=== PATIENT | male | born 1930 | race Caucasian/White ===

== ENCOUNTER 2021-06-30 11:57 | Emergency (ER) | payer MEDICARE, OTHER ==
[2021-06-30] MEDS ORDERED: Iopamidol 612 MG/ML 100 ML Bottle IVPUSH ONE (12:06)
[2021-06-30 12:39] LABS: ANION GAP 11.1 mEq/L (7-13); CHLORIDE,CL 103 mmol/L (98-107); SODIUM,NA 139 mmol/L (136-145)
[2021-06-30 12:47] LABS: PTT,PARTIAL THROMBOPLSTIN TIME 24.1 SEC (22.0-34.0)
[2021-06-30 13:22] LABS: AMPHETAMINES,URINE NEGATIVE (NEGATIVE); BARBITURATES,URINE NEGATIVE (NEGATIVE); BENZODIAZEPINE,URINE NEGATIVE (NEGATIVE); MDMA (ECSTASY), URINE NEGATIVE (NEGATIVE); METHADONE,URINE NEGATIVE (NEGATIVE); METHAMPHETAMINES,URINE NEGATIVE (NEGATIVE); OPIATES,URINE NEGATIVE (NEGATIVE); OXYCODONE,URINE NEGATIVE (NEGATIVE); PHENCYCLIDINE,URINE NEGATIVE (NEGATIVE); TCA,URINE NEGATIVE (NEGATIVE)
== END 2021-06-30 14:10 ==
LOC: DL.ED 11:57
DX: R41.0 Disorientation, unspecified (principal); I48.91 Unspecified atrial fibrillation; R77.8 Other specified abnormalities of plasma proteins; I10 Essential (primary) hypertension; K21.9 Gastro-esophageal reflux disease without esophagitis; Z95.1 Presence of aortocoronary bypass graft; Z88.8 Allergy status to other drugs, medicaments and biological substances; Z79.82 Long term (current) use of aspirin; Z79.02 Long term (current) use of antithrombotics/antiplatelets; Z79.899 Other long term (current) drug therapy; Z86.73 Personal history of transient ischemic attack (TIA), and cerebral infarction without residual deficits
CPT/HCPCS: 36415; 70450; 71260; 72125; 74177; 80053; 80305-QW; 80307; 81001; 83605; 84484; 85025; 85610; 85730; 86140; 93005; 93010; 99284; 99285-25; Q9967

== ENCOUNTER 2021-07-05 12:10 | Emergency (ER) | payer MEDICARE, OTHER ==
[2021-07-05] MEDS ORDERED: Sodium Chloride 0.9% 10 ML Syringe FLUSH PRN (12:34)
[2021-07-05 12:54] VITALS: BP 182/95; PULSE 82
[2021-07-05 13:04] LABS: PTT,PARTIAL THROMBOPLSTIN TIME 24.7 SEC (22.0-34.0)
[2021-07-05 13:06] LABS: ANION GAP 11.6 mEq/L (7-13); CHLORIDE,CL 101 mmol/L (98-107); SODIUM,NA 135 mmol/L (136-145)
== END 2021-07-05 14:30 ==
LOC: DL.ED 12:10
DX: I61.2 Nontraumatic intracerebral hemorrhage in hemisphere, unspecified (principal); F10.10 Alcohol abuse, uncomplicated; I48.91 Unspecified atrial fibrillation; I10 Essential (primary) hypertension; Z88.8 Allergy status to other drugs, medicaments and biological substances; Z20.822 Contact with and (suspected) exposure to COVID-19
CPT/HCPCS: 36415; 80053; 82947; 85025; 85610; 85730; 86140; 93005; 99285-25; U0002